=== PATIENT | male | born 1950 | race Caucasian/White ===

== ENCOUNTER 2016-10-05 08:43 | Observation (INO) | payer OTHER ==
[~2016-10-05] VITALS: Ht 190.5 cm; Wt 97.5 kg
[~2016-10-05 08:43] MED LIST: AMOX TR-K CLV1 EAC4 PO; ASPIRIN81 M2 PO; ATORVASTATIN 20 MG T PO; AUGMENTIN875 MG PO; CEFTIN500 MG PO; CLONAZEPAM0.5 MG PO; LIPITOR20 MG PO; MEDROL DOSEPAK4 MG PO; METOCLOPRAMIDE 10 MG PO; OMEPRAZOLE40 M1 PO; PANTOPRAZOLE SO40 MG PO; PERCOCET 5/31 TABLET PO; PROTONIX40 MG PO; TYLENOL EXTRA500 MG PO; VICKS VAPORUB O50 GM TP; ZANTAC150 MG PO; ZYRTEC10 M3 PO
[2016-10-05 09:46] LABS: BASOPHIL COUNT 0.1 K/uL (0-0.1); EOSINOPHIL (%) 0.8 % (0-5); EOSINOPHIL COUNT 0.1 K/uL (0-0.3); HEMATOCRIT 46.6 % (38.0-50.0); IMMATURE GRANULOCYTE (%) 0.3 % (0.0-0.7); INSTRUMENT ABS NEUTROPHIL CT 4.5 K/uL; LYMPHOCYTE COUNT 1.9 K/uL (1.0-2.8); MCH 32.6 PG (29.0-34.0); MCV 93.2 FL (86-99); MONOCYTE (%) 6.9 % (3-12); MONOCYTE COUNT 0.5 K/uL (0-0.8); NEUTROPHIL (%) 63.8 % (45-76); NEUTROPHIL COUNT 4.5 K/uL (1.8-6.4); PLATELET COUNT 163 K/uL (156-360); RBC DIS.WIDTH-CV 13.1 % (11.8-14.6); RBC DIS.WIDTH-SD 41.4 % (39-53); WHITE BLOOD COUNT 7.1 K/uL (4.1-10.2)
[2016-10-05 09:57] LABS: CHLORIDE 108 mEq/L (99-109); POTASSIUM 4.2 mEq/L (3.7-5.4); SODIUM 141 mEq/L (136-147)
[2016-10-05 09:59] LABS: GLUCOSE 112 mg/dL (70-99)
[2016-10-05 10:01] LABS: ANION GAP 10 MEQ/L (2-14)
[2016-10-05 10:03] LABS: GFR ESTIMATE (CALCULATED) > 59 mL/min/
[2016-10-05 10:04] LABS: UREA NITROGEN (BUN) 11 mg/dL (9-23)
[2016-10-05 10:06] LABS: TROP-I INTERPRETATION NEGATIVE; TROPONIN-I 0.01 ng/mL (0.0-0.30)
[2016-10-05 13:14] LABS: TROP-I INTERPRETATION NEGATIVE; TROPONIN-I < 0.01 ng/mL (0.0-0.30)
[2016-10-05] MEDS ORDERED: FLONASE16 G1 BOTH NARES (14:00)
[2016-10-05] MEDS ORDERED: ASPIR-LOW81 MG PO (14:01)
[2016-10-05 15:36] VITALS: BP 132/74
[2016-10-05 19:00] VITALS: BP 117/64
[2016-10-05 19:34] LABS: TROP-I INTERPRETATION NEGATIVE; TROPONIN-I < 0.01 ng/mL (0.0-0.30)
[2016-10-06 04:03] VITALS: BP 116/74
[2016-10-06 11:27] VITALS: BP 126/73
[2016-10-06] MEDS ORDERED: ZOFRAN4 MG PO (11:32)
== END 2016-10-06 14:00 | disposition home or self-care (01) ==
LOC: EME 08:43 → EDOF 13:36 → 5WEST 13:36 → EDOF 13:36 → 5WEST 15:30
PROVIDERS: Emergency Medicine; Internal Medicine
DX: R07.89 Other chest pain (principal); R00.1 Bradycardia, unspecified; R11.0 Nausea; K21.9 Gastro-esophageal reflux disease without esophagitis; E78.5 Hyperlipidemia, unspecified; Z87.891 Personal history of nicotine dependence; K44.9 Diaphragmatic hernia without obstruction or gangrene
CPT/HCPCS: 71010; 74176; 76705; 80048; 84443; 84484; 85025; 93005; 99281; 99285; G0378; J1650; J2270; J2405; J7030; J7040